=== PATIENT | male | born 2000 | race Two or more races ===

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

== ENCOUNTER 2020-05-01 18:36 | Emergency (ER) | payer OTHER ==
[~2020-05-01] VITALS: Ht 177.8 cm; Wt 81.6 kg
--- NOTE | 2020-05-01 18:40 | NUR ---
PT BIB HIS MOTHER C/O OF ABD CRAMPING WITH DIARRHEA X2 DAYS. VS CHECKED. AWAITING MD CURIEL.
[2020-05-01] MEDS ORDERED: IV NS 0.9% 1,000 ML BAG IV ONE (20:00)
[2020-05-01] MEDS ORDERED: KETOROLAC TROMETHAMINE INJ 30 MG/ML VIAL IV ONE (20:00)
[2020-05-01] MEDS ORDERED: KETOROLAC TROMETHAMINE 15 MG/ML VIAL ONE (20:07)
[2020-05-01 20:08] LABS: BASOPHILS % (AUTO) 0.6 % (0.0-2.0); EOSINOPHILS % (AUTO) 1.6 % (0.0-6.0); HEMATOCRIT 42 % (39-51); HEMOGLOBIN 14.3 g/dL (13.5-17.5); LYMPHOCYTES # (AUTO) 0.8 /CMM (0.8-4.8); LYMPHOCYTES % (AUTO) 14.3 % (20.0-44.0); MEAN CORPUSCULAR HGB CONC 34 g/dl (31.0-36.0); MEAN CORPUSCULAR VOLUME 88 fL (80-96); MONOCYTES # (AUTO) 0.9 /CMM (0.1-1.30); MONOCYTES % (AUTO) 14.8 % (2.0-12.0); NEUTROPHILS % (AUTO) 68.7 % (43.0-81.0); PLATELET COUNT (AUTO) 212 /CMM (150-450); RED BLOOD CELL COUNT(AUTO) 4.77 MIL/uL (4.5-6.0); WHITE BLOOD COUNT (AUTO) 5.8 K/uL (4.3-11.0)
[2020-05-01 20:22] LABS: ALBUMIN 3.2 g/dL (3.4-5.0); BILIRUBIN,DIRECT 0.1 mg/dL (0.0-0.2); BILIRUBIN,TOTAL 0.4 mg/dL (0.2-1.0)
--- NOTE | 2020-05-01 20:23 | NUR ---
COVID SWAB SENT TO LAB
[2020-05-01 20:50] LABS: CALCIUM, SERUM 8.6 mg/dL (8.5-10.1); POTASSIUM 3.4 mmol/L (3.5-5.1)
[2020-05-01] MEDS ORDERED: POTASSIUM CHLORIDE 20 MEQ TAB.PRT.SR PO ONE ×2 (21:00→21:07)
--- NOTE | 2020-05-01 21:24 | NUR ---
Patient discharged to home in stable condition. Written and verbal after care instructions given. Patient verbalizes understanding of instruction.IV removed. Catheter intact and site benign. Pressure and 4x4 applied to site. No bleeding noted.
[2020-05-01 21:40] VITALS: BP 117/84
== END 2020-05-01 21:41 | disposition home or self-care (01) ==
LOC: ER 18:42
DX: R19.7 Diarrhea, unspecified (principal); E87.6 Hypokalemia; R50.9 Fever, unspecified; Z20.828 Contact with and (suspected) exposure to other viral communicable diseases
CPT/HCPCS: 36415; 80048; 80076; 85025; 96361; 96374; 99283; C9803; J1885; J7030; U0003

== ENCOUNTER 2020-05-26 20:40 | Emergency (ER) | payer OTHER ==
[~2020-05-26] VITALS: Ht 177.8 cm; Wt 81.6 kg
--- NOTE | 2020-05-26 21:00 | NUR ---
IDANIA JENKINS AT BED SIDE
--- NOTE | 2020-05-26 21:41 | NUR ---
US TECH AT BED SIDE
--- NOTE | 2020-05-26 22:42 | NUR ---
Patient discharged to home in stable condition. Written and verbal after care instructions given. Patient verbalizes understanding of instruction.Pt ambulatory with a steady gait
[2020-05-26 22:43] VITALS: BP 118/79
== END 2020-05-26 22:44 | disposition home or self-care (01) ==
LOC: ER 20:42
DX: R20.2 Paresthesia of skin (principal); F17.200 Nicotine dependence, unspecified, uncomplicated; F12.90 Cannabis use, unspecified, uncomplicated; R22.43 Localized swelling, mass and lump, lower limb, bilateral
CPT/HCPCS: 93970-TC

== ENCOUNTER 2022-02-03 17:09 | Emergency (ER) | payer OTHER ==
[~2022-02-03] VITALS: Ht 177.8 cm; Wt 88.5 kg
--- NOTE | 2022-02-03 17:09 | NUR ---
BIB C/O CONSTIPATION X 3 DAY THIS MORNING WHEN HE HAD A BOWEL MOVEMENT HE NOTICED BRIGHT RED URINE, LOWER ABDOMINAL DISCOMFORT, DENIES PAIN. VITALS ARE WITHIN NORMAL LIMITS.
[2022-02-03] MEDS ORDERED: LACT10SO29 PO (18:05)
--- NOTE | 2022-02-03 18:53 | NUR ---
Patient discharged to home in stable condition. Written and verbal after care instructions given. Patient verbalizes understanding of instruction.
[2022-02-03 18:55] VITALS: BP 138/81
== END 2022-02-03 18:56 | disposition home or self-care (01) ==
LOC: ER 17:14
DX: K62.5 Hemorrhage of anus and rectum (principal); F17.200 Nicotine dependence, unspecified, uncomplicated

== ENCOUNTER 2022-04-18 10:37 | Emergency (ER) | payer OTHER ==
[~2022-04-18] VITALS: Ht 177.8 cm; Wt 88.5 kg
[~2022-04-18 10:37] MED LIST: LACT10SO29 PO
[2022-04-18 11:10] VITALS: BP 131/62
--- NOTE | 2022-04-18 11:11 | NUR ---
BIBS W/ C/O COUGH/SORE THROAT. TO ER BED 7.
[2022-04-18] MEDS ORDERED: IBUPROFEN 400 MG TABLET ONE (11:54)
--- NOTE | 2022-04-18 11:56 | NUR ---
DR ELIAS MADE AWARE THAT VENTOLIN HFA GIVEN TO COVID PATIENTS ONLY PER PHARMACY. WILL D/C MEDICATION PER MD.
[2022-04-18] MEDS ORDERED: BENZONATATE 100 MG CAPSULE PO PRN (12:00)
[2022-04-18] MEDS ORDERED: IBUPROFEN 400 MG TABLET PO ONE (12:00)
[2022-04-18] MEDS ORDERED: ALBUTEROL SULFATE 8 GM HFA.AER.AD IH ONE (12:00)
--- NOTE | 2022-04-18 12:08 | NUR ---
COVID AND RAPID FLU SWABS OBTAINED AND SENT TO LAB. PO MEDS ADMINISTERED INDICATED, NORI WELL.
[2022-04-18] MEDS ORDERED: ALBU18HF2 INH (13:11)
[2022-04-18] MEDS ORDERED: BENZ-13 PO (13:11)
--- NOTE | 2022-04-18 13:28 | NUR ---
Patient discharged to home in stable condition. Written and verbal after care instructions given. Patient verbalizes understanding of instruction.
== END 2022-04-18 13:40 | disposition home or self-care (01) ==
LOC: ER 10:41
DX: R05.9 Cough, unspecified (principal); Z20.822 Contact with and (suspected) exposure to COVID-19; Z28.310 Unvaccinated for COVID-19
CPT/HCPCS: 99284; 71045; 87426; 87804; C9803

== ENCOUNTER 2022-07-19 20:12 | Emergency (ER) | payer OTHER ==
[~2022-07-19] VITALS: Ht 177.8 cm; Wt 88.5 kg
[~2022-07-19 20:12] MED LIST changes: +ALBU18HF2 INH; +BENZ-13 PO
[2022-07-19 21:40] VITALS: BP 139/84
[2022-07-19] MEDS ORDERED: NABU-141 PO (22:14)
[2022-07-19] MEDS ORDERED: OXYC-128 PO (22:14)
== END 2022-07-19 22:53 | disposition home or self-care (01) ==
LOC: ER 20:14
DX: S62.324A Displaced fracture of shaft of fourth metacarpal bone, right hand, initial encounter for closed fracture (principal); S62.326A Displaced fracture of shaft of fifth metacarpal bone, right hand, initial encounter for closed fracture; F17.200 Nicotine dependence, unspecified, uncomplicated; Z79.899 Other long term (current) drug therapy; W22.01XA Walked into wall, initial encounter; Y93.89 Activity, other specified; Y92.89 Other specified places as the place of occurrence of the external cause; Y99.8 Other external cause status
CPT/HCPCS: 73130-TC

== ENCOUNTER 2023-06-02 00:24 | Emergency (ER) | payer OTHER ==
[~2023-06-02] VITALS: Ht 177.8 cm; Wt 86.2 kg
[~2023-06-02 00:24] MED LIST changes: +NABU-141 PO; +OXYC-128 PO
[2023-06-02 01:37] LABS: BASOPHILS # (AUTO) 0.1 K/uL (0.0-0.2); BASOPHILS % (AUTO) 1.1 % (0.0-2.0); EOSINOPHILS # (AUTO) 0.7 K/uL (0.0-0.7); EOSINOPHILS % (AUTO) 10.3 % (0.0-6.0); HEMATOCRIT 45 % (39-51); HEMOGLOBIN 15.6 g/dL (13.5-17.5); LYMPHOCYTES # (AUTO) 2.4 K/uL (0.8-4.8); MEAN CORPUSCULAR HEMOGLOBIN 30 PG (26.0-33.0); MEAN CORPUSCULAR HGB CONC 34 g/dl (31.0-36.0); MEAN CORPUSCULAR VOLUME 87 fL (80-96); MONOCYTES % (AUTO) 13.8 % (2.0-12.0); NEUTROPHILS % (AUTO) 41.8 % (43.0-81.0); PLATELET COUNT (AUTO) 267 K/uL (150-450); RED BLOOD CELL COUNT(AUTO) 5.22 MIL/uL (4.5-6.0); RED CELL DISTRIBUTION WIDTH 14.2 % (11.5-15.0); WHITE BLOOD COUNT (AUTO) 7.2 K/uL (4.3-11.0)
[2023-06-02 01:45] LABS: CALCIUM, SERUM 8.8 mg/dL (8.5-10.1); CARBON DIOXIDE 25 mmol/L (21-32); CHLORIDE 101 mmol/L (98-107); CREATININE 0.9 mg/dL (0.6-1.3); GLUCOSE 101 mg/dL (74-106); POTASSIUM 3.4 mmol/L (3.5-5.1); SODIUM SERUM 134 mmol/L (136-145); UREA NITROGEN, BLOOD 9 mg/dL (7-18)
[2023-06-02] MEDS ORDERED: NABU-141 PO (03:12)
[2023-06-02 03:29] VITALS: BP 129/86; TEMP 98.1; O2SAT 100
== END 2023-06-02 03:29 | disposition home or self-care (01) ==
LOC: ER 00:29
DX: R07.89 Other chest pain (principal); F17.200 Nicotine dependence, unspecified, uncomplicated; Z79.899 Other long term (current) drug therapy
CPT/HCPCS: 99285; 71045; 93005 ×2; 85025; 80048; 85378; 36415; 84484; J7030; A4223

== ENCOUNTER 2023-12-21 14:45 | Emergency (ER) | payer OTHER ==
[~2023-12-21] VITALS: Ht 177.8 cm; Wt 80.7 kg
[2023-12-21] MEDS ORDERED: IBUP-1953 PO (15:51)
[2023-12-21 16:02] VITALS: BP 132/80; TEMP 98.5; O2SAT 98
== END 2023-12-21 16:03 | disposition home or self-care (01) ==
LOC: ER 14:50
DX: S20.212A Contusion of left front wall of thorax, initial encounter (principal); F19.10 Other psychoactive substance abuse, uncomplicated; F17.200 Nicotine dependence, unspecified, uncomplicated; V27.49XA Other motorcycle driver injured in collision with fixed or stationary object in traffic accident, initial encounter; Y93.89 Activity, other specified; Y92.488 Other paved roadways as the place of occurrence of the external cause; Y99.8 Other external cause status
CPT/HCPCS: 71100-TC

== ENCOUNTER 2024-01-02 07:15 | Emergency (ER) | payer OTHER ==
[~2024-01-02] VITALS: Ht 172.7 cm; Wt 78.0 kg
[~2024-01-02 07:15] MED LIST changes: +IBUP-1953 PO
[2024-01-02] MEDS ORDERED: ACETAMINOPHEN ES 500 MG TABLET ONE (07:35)
[2024-01-02] MEDS ORDERED: TDAP [DIPH/PERTUSSIS/TET] 0.5 ML VIAL IM ONE (07:36)
[2024-01-02] MEDS: ACETAMINOPHEN 325 MG TABLET PO ONE (07:36)
[2024-01-02] MEDS: TDAP [DIPH/PERTUSSIS/TET] 0.5 ML VIAL IM ONE (07:37)
[2024-01-02 09:02] VITALS: BP 122/64; TEMP 98.4; O2SAT 100
== END 2024-01-02 09:02 | disposition home or self-care (01) ==
LOC: ER 07:15
DX: S01.81XA Laceration without foreign body of other part of head, initial encounter (principal); F10.129 Alcohol abuse with intoxication, unspecified; F17.200 Nicotine dependence, unspecified, uncomplicated; Z79.899 Other long term (current) drug therapy; Z79.1 Long term (current) use of non-steroidal anti-inflammatories (NSAID); Z79.51 Long term (current) use of inhaled steroids; W26.8XXA Contact with other sharp object(s), not elsewhere classified, initial encounter; Y93.89 Activity, other specified; Y92.89 Other specified places as the place of occurrence of the external cause; Y99.8 Other external cause status; Y90.0 Blood alcohol level of less than 20 mg/100 ml
CPT/HCPCS: 70450-TC; 70486-TC; 90715

== ENCOUNTER 2024-03-15 20:09 | Emergency (ER) | payer OTHER ==
[~2024-03-15] VITALS: Ht 172.7 cm; Wt 77.1 kg
[2024-03-15 21:46] LABS: APPEARANCE,URINE CLEAR (CLEAR); BILIRUBIN,URINE NEGATIVE (NEGATIVE); BLOOD, URINE 3+ Ery/uL (NEGATIVE); COLOR,URINE YELLOW (YELLOW); KETONES,URINE NEGATIVE (NEGATIVE); LEUKOCYTE ESTERASE ,URINE TRACE (NEGATIVE); NITRITE, URINE NEGATIVE (NEGATIVE); PROTEIN,URINE 2+ mg/dl (NEGATIVE); UGLUCOSE NEGATIVE (NEGATIVE); UROBILINOGEN,URINE 0.2 EU/dL (0.2)
[2024-03-15 21:56] LABS: RBC,URINE 81-100 /HPF (0-2)
[2024-03-15 21:59] LABS: ADD URINE CULTURE YES; BACTERIA,URINE 1+ /HPF (None Seen); SQUAMOUS EPITHELIAL CELL,UR 0-2 /HPF (None Seen)
[2024-03-15] MEDS ORDERED: CEPH-570 PO (22:44)
[2024-03-15] MEDS ORDERED: CEFTRIAXONE 500 MG VIAL ONE (22:45)
[2024-03-15] MEDS ORDERED: AZITHROMYCIN 250 MG TABLET ONE (22:46)
[2024-03-15] MEDS ORDERED: LIDOCAINE /MPF 1% VIAL 5 ML VIAL ONE (22:46)
[2024-03-15] MEDS: AZITHROMYCIN 250 MG TABLET PO ONE (22:55)
[2024-03-15] MEDS: CEFTRIAXONE 1 G VIAL IM ONE (22:55)
[2024-03-15 23:05] VITALS: BP 135/81; TEMP 98.2; O2SAT 98
== END 2024-03-15 23:05 | disposition home or self-care (01) ==
LOC: ER 20:17
DX: N39.0 Urinary tract infection, site not specified (principal); R30.0 Dysuria; R35.0 Frequency of micturition; R31.9 Hematuria, unspecified; F19.10 Other psychoactive substance abuse, uncomplicated; F17.200 Nicotine dependence, unspecified, uncomplicated; Z20.2 Contact with and (suspected) exposure to infections with a predominantly sexual mode of transmission
CPT/HCPCS: 99283; 96372; 87086; 81001; J0696; J3490

== ENCOUNTER 2024-08-09 11:27 | Emergency (ER) | payer OTHER ==
[~2024-08-09] VITALS: Ht 177.8 cm; Wt 77.1 kg
[~2024-08-09 11:27] MED LIST changes: +CEPH-570 PO
[2024-08-09 11:50] VITALS: BP 154/99; TEMP 99
[2024-08-09] MEDS ORDERED: DOXY100C2 PO (12:36)
[2024-08-09] MEDS ORDERED: LIDOCAINE 1% INJ 50 ML MDV IJ ONE (12:50)
[2024-08-09] MEDS ORDERED: CEFTRIAXONE 1 G VIAL ONE (12:50)
[2024-08-09] MEDS: CEFTRIAXONE 1 G VIAL IM ONE (12:54)
[2024-08-09 12:58] VITALS: O2SAT 99
[2024-08-11 11:11] LABS: CHLAMYDIA TRACHOMATIS NAA Negative (Negative); NEISSERIA GONORRHOEAE NAA Negative (Negative)
== END 2024-08-09 12:59 | disposition home or self-care (01) ==
LOC: ER 11:30
DX: Z20.2 Contact with and (suspected) exposure to infections with a predominantly sexual mode of transmission (principal); F17.200 Nicotine dependence, unspecified, uncomplicated
CPT/HCPCS: 99283; 96372; 87491; 87591; J3490; J0696

== ENCOUNTER 2024-10-31 02:19 | Emergency (ER) | payer OTHER ==
[~2024-10-31] VITALS: Ht 177.8 cm; Wt 73.9 kg
[~2024-10-31 02:19] MED LIST changes: +DOXY100C2 PO
[2024-10-31 02:24] VITALS: BP 148/107; TEMP 97.7; O2SAT 97
[2024-10-31] MEDS ORDERED: IBUPROFEN 400 MG TABLET ONE (03:20)
[2024-10-31] MEDS: IBUPROFEN 400 MG TABLET PO ONE (03:21)
== END 2024-10-31 06:37 ==
LOC: ER 02:21
DX: M25.462 Effusion, left knee (principal); F17.200 Nicotine dependence, unspecified, uncomplicated; Z79.899 Other long term (current) drug therapy; V00.131A Fall from skateboard, initial encounter; Y93.51 Activity, roller skating (inline) and skateboarding; Y92.89 Other specified places as the place of occurrence of the external cause; Y99.8 Other external cause status
CPT/HCPCS: 73564-TC

== ENCOUNTER 2025-02-12 03:55 | Emergency (ER) | payer OTHER ==
[~2025-02-12] VITALS: Ht 170.2 cm; Wt 77.1 kg
[2025-02-12 04:46] LABS: PLATELET COUNT (AUTO) 295 K/uL (150-450); RED BLOOD CELL COUNT(AUTO) 4.91 MIL/uL (4.5-6.0); RED CELL DISTRIBUTION WIDTH 13.5 % (11.5-15.0); WHITE BLOOD COUNT (AUTO) 5.6 K/uL (4.3-11.0)
[2025-02-12 05:00] LABS: INR 1.0 (0.91-1.10)
[2025-02-12 05:04] LABS: CALCIUM, SERUM 8.3 mg/dL (8.5-10.1); CREATININE 0.9 mg/dL (0.6-1.3); SODIUM SERUM 144.0 mmol/L (136-145); UREA NITROGEN, BLOOD 8.0 mg/dL (7-18)
[2025-02-12 05:16] LABS: ASPARTATE AMINOTRANSFERASE 105.0 U/L (15-37); NT-PRO BNP 12.0 pg/mL (0-125); TOTAL PROTEIN, SERUM 7.5 g/dL (6.4-8.2)
[2025-02-12] MEDS ORDERED: ONDANSETRON HCL/PF 4 MG/2 ML VIAL ONE ×2 (05:26→05:58)
[2025-02-12] MEDS ORDERED: POTASSIUM CL. PREMIX PERIPHER. 50 ML ONE (05:26)
[2025-02-12] MEDS ORDERED: OCTREOTIDE 50 MCG/ML AMPUL ONE (05:27)
[2025-02-12 05:46] VITALS: TEMP 98.5
[2025-02-12] MEDS: ONDANSETRON HCL/PF - ER 4 MG/2 ML VIAL IV ONE ×2 (05:50)
[2025-02-12] MEDS: OCTREOTIDE 50 MCG/ML AMPUL IV ONE (05:50)
[2025-02-12] MEDS: POTASSIUM CL. PREMIX PERIPHER. 50 ML IV SCH (05:50)
[2025-02-12 07:04] LABS: APPEARANCE,URINE CLEAR (CLEAR); BLOOD, URINE NEGATIVE Ery/uL (NEGATIVE); LEUKOCYTE ESTERASE ,URINE NEGATIVE (NEGATIVE); NITRITE, URINE NEGATIVE (NEGATIVE); UGLUCOSE NEGATIVE (NEGATIVE)
[2025-02-12 07:14] LABS: BARBITURATE, URINE NEGATIVE (NEGATIVE); BENZODIAZEPINE, URINE NEGATIVE (NEGATIVE); CANNABINOID, URINE NEGATIVE (NEGATIVE); COCCAINE, URINE NEGATIVE (NEGATIVE); OPIATE, URINE NEGATIVE (NEGATIVE)
[2025-02-12 07:15] VITALS: BP 130/84; O2SAT 98
[2025-02-12 07:20] LABS: AMPHETAMINE, URINE POSITIVE (NEGATIVE)
== END 2025-02-12 07:41 | disposition left against medical advice (07) ==
LOC: ER 03:55
DX: K92.0 Hematemesis (principal); R10.13 Epigastric pain; F17.200 Nicotine dependence, unspecified, uncomplicated; Z79.899 Other long term (current) drug therapy
CPT/HCPCS: 99285; 74176; 96365; 96375; 71045; 93005; 85025; 83690; 85610; 85730; 36415; 80053; 84484; 83880; 80307; 81003; J2354; J2405 ×4; J3480

== ENCOUNTER 2025-05-08 20:47 | Emergency (ER) | payer OTHER | END 2025-05-08 22:22 | disposition left against medical advice (07) | LOC: ER 20:49 | DX: Z20.2 Contact with and (suspected) exposure to infections with a predominantly sexual mode of transmission (principal); Z53.21 Procedure and treatment not carried out due to patient leaving prior to being seen by health care provider ==

== ENCOUNTER 2025-05-09 10:21 | Emergency (ER) | payer OTHER ==
[~2025-05-09] VITALS: Ht 177.8 cm; Wt 77.1 kg
[2025-05-09 10:27] VITALS: BP 156/81; TEMP 99.1
[2025-05-09] MEDS ORDERED: LIDOCAINE /MPF 1% VIAL 5 ML VIAL ONE (10:45)
[2025-05-09] MEDS ORDERED: CEFTRIAXONE 500 MG VIAL ONE (10:45)
[2025-05-09] MEDS: CEFTRIAXONE 1 G VIAL IM ONE (10:55)
[2025-05-09 11:00] VITALS: O2SAT 99
[2025-05-11 05:13] LABS: CHLAMYDIA TRACHOMATIS NAA Negative (Negative); NEISSERIA GONORRHOEAE NAA Negative (Negative)
== END 2025-05-09 11:01 | disposition home or self-care (01) ==
LOC: ER 10:25
DX: Z20.2 Contact with and (suspected) exposure to infections with a predominantly sexual mode of transmission (principal); F17.200 Nicotine dependence, unspecified, uncomplicated
CPT/HCPCS: 99283; 96372; 87491; 87591; J0696; J3490